=== PATIENT | female | born 1985 | race Caucasian/White ===

== ENCOUNTER 2017-02-27 17:16 | Emergency (ER) | payer OTHER ==
[~2017-02-27] VITALS: Ht 165.1 cm; Wt 75.4 kg
[2017-02-27 17:23] VITALS: BP 111/63
== END 2017-02-27 20:17 | disposition left against medical advice (07) ==
LOC: ED 17:16
DX: Z53.21 Procedure and treatment not carried out due to patient leaving prior to being seen by health care provider (principal)

== ENCOUNTER 2018-12-13 13:58 | Emergency (ER) | payer OTHER ==
[~2018-12-13] VITALS: Ht 165.1 cm; Wt 75.7 kg
[2018-12-13 14:05] VITALS: BP 118/74; Ht 165.1 cm; Wt 75.7 kg
== END 2018-12-13 15:15 | disposition left against medical advice (07) ==
LOC: ED 13:58
DX: Z53.21 Procedure and treatment not carried out due to patient leaving prior to being seen by health care provider (principal)

== ENCOUNTER 2019-02-26 17:31 | Emergency (ER) | payer OTHER ==
[~2019-02-26] VITALS: Ht 165.1 cm; Wt 76.7 kg
[2019-02-26 19:38] VITALS: BP 105/61
== END 2019-02-26 19:38 | disposition home or self-care (01) ==
LOC: ED 17:31
DX: R21 Rash and other nonspecific skin eruption (principal); L29.9 Pruritus, unspecified